=== PATIENT | female | born 1955 | race Caucasian/White ===

== ENCOUNTER 2022-08-17 13:22 | Outpatient (CLI) | payer MEDICARE | END 2022-08-17 13:23 | disposition home or self-care (01) | LOC: DTY/OP 13:22 | PROVIDERS: ATTEND Surgery | DX: K21.9 Gastro-esophageal reflux disease without esophagitis (principal); K31.84 Gastroparesis; K95.09 Other complications of gastric band procedure; E66.01 Morbid (severe) obesity due to excess calories | CPT/HCPCS: 97802 ==